=== PATIENT | male | born 1945 | race Hispanic/Latino ===

== ENCOUNTER 2020-06-26 16:47 | Emergency (ER) | payer OTHER ==
[2020-06-26] MEDS ORDERED: DEXAMETHASONE SOD PHOSPHATE 4 MG/ML 5ML VIAL ONE (17:27)
[2020-06-26] MEDS ORDERED: CEFTRIAXONE SODIUM 1 GM ONE (17:28)
[2020-06-26] MEDS ORDERED: ACETAMINOPHEN 325 MG TAB ONE (17:46)
[2020-06-26 17:56] LABS: HEMATOCRIT 41.3 % (42-54); LYMPHOCYTES % (AUTO) 8.2 % (21.0-51.0); MEAN CORPUSCULAR HEMOGLOBIN 28.3 pg (27.0-33.0); MEAN CORPUSCULAR HGB CONC 34.1 g/dL (32.0-36.0); MEAN CORPUSCULAR VOLUME 82.9 fL (79-99); MONOCYTES % (AUTO) 4.2 % (3.0-13.0); NEUTROPHILS % (AUTO) 86.9 % (40.0-77.0); PLATELET COUNT (AUTO) 196 K/uL (130-400); RED BLOOD CELL COUNT(AUTO) 4.98 MIL/uL (4.50-6.20); RED CELL DISTRIBUTION WIDTH 14.2 % (11.0-15.5); WHITE BLOOD COUNT (AUTO) 7.7 K/uL (4.8-10.8)
[2020-06-26 18:24] LABS: INR 1.03 (0.85-1.15)
[2020-06-26 18:25] LABS: PARTIAL THROMBOPLASTIN TIME 34.9 SEC (26.3-35.5); POTASSIUM 3.6 mmol/L (3.5-5.1)
[2020-06-26 18:30] LABS: ALBUMIN 2.6 g/dL (3.5-5.0); BILIRUBIN,TOTAL 0.7 mg/dL (0.2-1.0); TOTAL PROTEIN, SERUM 7.4 g/dL (6.0-8.3)
[2020-06-26] MEDS ORDERED: AZITHROMYCIN 500MG+NS 250ML 250 ML IV ONE (18:31)
[2020-06-27] MEDS ORDERED: KETOROLAC TROMETHAMINE 15MG/ML ONE (04:50)
== END 2020-06-27 01:26 | disposition home or self-care (01) ==
LOC: EDH 16:47
DX: U07.1 COVID-19 (principal); J12.82 Pneumonia due to coronavirus disease 2019; J96.01 Acute respiratory failure with hypoxia; E11.9 Type 2 diabetes mellitus without complications; E78.5 Hyperlipidemia, unspecified; I10 Essential (primary) hypertension; Z79.01 Long term (current) use of anticoagulants
CPT/HCPCS: 36415; 71045; 80053; 82550; 83605 ×2; 83880; 84145; 84484; 85025; 85378; 85610; 85730; 87040 ×2; 87426; 93005; 96365; 96366; 96367; 96375; 99291; J0456; J0696; J1100; J1885